=== PATIENT | female | born 1995 | race Caucasian/White ===

== ENCOUNTER → 2022-09-20 10:20 | Outpatient (BNVA) | payer MEDICAID, SELFPAY | PROVIDERS: PCP Nurse Practitioner Family; Visit Provider Nurse Practitioner Family | DX: Z02.83 Encounter for blood-alcohol and blood-drug test (principal); Z71.51 Drug abuse counseling and surveillance of drug abuser; R06.2 Wheezing | CPT/HCPCS: 80307 ==

== ENCOUNTER → 2022-10-04 10:21 | Outpatient (BNVA) | payer MEDICAID, SELFPAY | PROVIDERS: PCP Nurse Practitioner Family; Visit Provider Emergency Medicine | DX: F19.90 Other psychoactive substance use, unspecified, uncomplicated (principal); Z02.83 Encounter for blood-alcohol and blood-drug test | CPT/HCPCS: 80307 ==

== ENCOUNTER → 2022-10-18 11:44 | Outpatient (BNVA) | payer MEDICAID, SELFPAY | PROVIDERS: PCP Nurse Practitioner Family; Visit Provider Emergency Medicine | DX: O99.320 Drug use complicating pregnancy, unspecified trimester (principal); Z02.83 Encounter for blood-alcohol and blood-drug test; J20.8 Acute bronchitis due to other specified organisms; Z3A.00 Weeks of gestation of pregnancy not specified | CPT/HCPCS: 80307 ==

== ENCOUNTER → 2022-11-13 10:06 | Outpatient (BNVA) | payer MEDICAID, SELFPAY | PROVIDERS: PCP Nurse Practitioner Family; Visit Provider Nurse Practitioner Family | DX: Z02.83 Encounter for blood-alcohol and blood-drug test (principal); F19.10 Other psychoactive substance abuse, uncomplicated | CPT/HCPCS: 80307 ==